=== PATIENT | male | born 1955 | race Caucasian/White ===

== ENCOUNTER 2017-09-04 23:06 | Inpatient (IN) | payer BC, OTHER ==
[~2017-09-04] VITALS: Ht 182.9 cm; Wt 104.3 kg
[2017-09-04 23:09] VITALS: Ht 182.9 cm; Wt 104.3 kg
[2017-09-04 23:45] LABS: BASOPHIL % 0.5 % (0-2); PLATELET COUNT 219 x10^3mcL (130-400); RED CELL DISTRIBUTION WIDTH 13.7 % (11.5-14.5)
[2017-09-05 00:03] LABS: CALCIUM 8.2 mg/dL (8.5-10.1); CARBON DIOXIDE 25.2 mmol/L (21-32); CHLORIDE SERUM 106 mmol/L (98-107); CREATININE SERUM 1.1 mg/dL (0.7-1.3); GFR1 > 60 mL/min; GLUCOSE SERUM 151 mg/dL (74-106); POTASSIUM SERUM 3.8 mmol/L (3.5-5.1); SODIUM SERUM 139 mmol/L (136-145)
[2017-09-05 00:11] LABS: ALKALINE PHOSPHATASE 83 U/L (46-116); ALT/SGPT 26 U/L (16-63); AMYLASE 76 U/L (25-115); AST/SGOT 16 U/L (15-37); BILIRUBIN TOTAL 0.2 mg/dL (0.20-1.00); CHOLESTEROL 135 mg/dL (<200); LIPASE 198 IU/L (73-393); T4(THYROXINE) 7.9 ug/dL (4.7-13.3); TOTAL PROTEIN, SERUM 6.7 g/dL (6.4-8.2)
[2017-09-05 00:13] LABS: ALBUMIN 3.3 g/dL (3.4-5.0)
[2017-09-05 00:14] LABS: HDL CHOLESTEROL 31 mg/dL (40-60)
[2017-09-05 02:05] LABS: MAGNESIUM 2.1 mg/dL (1.8-2.4); PHOSPHOROUS 3.3 mg/dL (2.5-4.9)
[2017-09-05 02:09] VITALS: BP 129/54
[2017-09-05 02:10] LABS: CHOLESTEROL/HDL RATIO 4.3
[2017-09-05 02:14] LABS: FREE T4 1.09 ng/dL (0.76-1.46); FREE THYROXINE INDEX 2.8 ug/dL (1.4-4.5); T4(THYROXINE) 8.1 ug/dL (4.7-13.3)
[2017-09-05 02:21] LABS: T3 TOTAL 1.17 ng/mL
[2017-09-05] MEDS ORDERED: LANTUS SOLOS100 U/M1 SQ (04:15)
[2017-09-05] MEDS ORDERED: METFORMIN HCL1000 MG PO (04:16)
[2017-09-05] MEDS ORDERED: LISINOPRIL10 MG PO (04:16)
[2017-09-05 06:09] VITALS: BP 116/60; BP 16/60
[2017-09-05 07:01] LABS: BASOPHIL % 0.2 % (0-2); PLATELET COUNT 182 x10^3mcL (130-400); RED CELL DISTRIBUTION WIDTH 13.7 % (11.5-14.5)
[2017-09-05 07:22] LABS: CALCIUM 8.3 mg/dL (8.5-10.1); CARBON DIOXIDE 25.7 mmol/L (21-32); CHLORIDE SERUM 105 mmol/L (98-107); CREATININE SERUM 1.1 mg/dL (0.7-1.3); GFR1 > 60 mL/min; GLUCOSE SERUM 110 mg/dL (74-106); MAGNESIUM 2.2 mg/dL (1.8-2.4); PHOSPHOROUS 3.8 mg/dL (2.5-4.9); POTASSIUM SERUM 4.6 mmol/L (3.5-5.1); SODIUM SERUM 138 mmol/L (136-145)
[2017-09-05 08:06] VITALS: BP 112/56
[2017-09-05 09:56] LABS: microscopic required? YES; urine erythrocyte NEGATIVE (NEGATIVE)
[2017-09-05 10:06] LABS: AMPHETAMINE QUAL UR NONE DETECTED (NEG <=1000)
[2017-09-05 12:38] VITALS: BP 119/59
[2017-09-05 17:36] VITALS: BP 145/53
[2017-09-05 20:31] VITALS: BP 145/65
[2017-09-06 06:37] VITALS: BP 146/52
[2017-09-06 07:19] LABS: BASOPHIL % 0.4 % (0-2); PLATELET COUNT 161 x10^3mcL (130-400); RED CELL DISTRIBUTION WIDTH 13.6 % (11.5-14.5)
[2017-09-06 07:58] LABS: CALCIUM 7.8 mg/dL (8.5-10.1); CARBON DIOXIDE 23.8 mmol/L (21-32); CHLORIDE SERUM 109 mmol/L (98-107); GFR1 > 60 mL/min; GLUCOSE SERUM 147 mg/dL (74-106); PHOSPHOROUS 2.5 mg/dL (2.5-4.9); POTASSIUM SERUM 4.6 mmol/L (3.5-5.1); SODIUM SERUM 142 mmol/L (136-145)
[2017-09-06 09:16] VITALS: BP 140/55
[2017-09-06 13:49] VITALS: BP 139/61
[2017-09-06 17:35] VITALS: BP 151/71
[2017-09-06 22:21] VITALS: BP 133/59
[2017-09-07 05:42] VITALS: BP 134/59
[2017-09-07] MEDS ORDERED: MOT800 PO (07:42)
[2017-09-07] MEDS ORDERED: COL100 PO (07:43)
[2017-09-07 08:18] LABS: BASOPHIL % 0.4 % (0-2); PLATELET COUNT 156 x10^3mcL (130-400); RED CELL DISTRIBUTION WIDTH 13.5 % (11.5-14.5)
[2017-09-07 08:22] LABS: CALCIUM 7.9 mg/dL (8.5-10.1); CARBON DIOXIDE 24.9 mmol/L (21-32); CHLORIDE SERUM 105 mmol/L (98-107); CREATININE SERUM 0.8 mg/dL (0.7-1.3); GFR1 > 60 mL/min; GLUCOSE SERUM 155 mg/dL (74-106); MAGNESIUM 2.1 mg/dL (1.8-2.4); PHOSPHOROUS 2.5 mg/dL (2.5-4.9); SODIUM SERUM 136 mmol/L (136-145)
[2017-09-07 08:57] VITALS: BP 143/66
[2017-09-07 11:59] VITALS: BP 143/66
[2017-09-07 13:34] VITALS: BP 120/59
== END 2017-09-07 14:15 | disposition home or self-care (01) | DRG 417 ==
LOC: ED 23:06 → DU 09-05 01:07 → MU 09-05 01:07 → DU 09-05 02:09 → MU 09-07 08:06
PROVIDERS: Emergency Medicine; Family Medicine; Surgery
PROC: 0FT44ZZ Resection of Gallbladder, Percutaneous Endoscopic Approach (ICD-10-PCS; principal; 2017-09-06 12:00)
DX: K80.62 Calculus of gallbladder and bile duct with acute cholecystitis without obstruction (principal); N17.0 Acute kidney failure with tubular necrosis; E44.1 Mild protein-calorie malnutrition; F17.210 Nicotine dependence, cigarettes, uncomplicated; K76.0 Fatty (change of) liver, not elsewhere classified; E11.65 Type 2 diabetes mellitus with hyperglycemia; E66.9 Obesity, unspecified; Z68.31 Body mass index [BMI] 31.0-31.9, adult; E87.8 Other disorders of electrolyte and fluid balance, not elsewhere classified; D64.9 Anemia, unspecified; R16.0 Hepatomegaly, not elsewhere classified
CPT/HCPCS: 82962; 83880; 84439; 94150; G0480; J0330; J0500; J0690; J1170; J1644; J1815; J1885; J2175; J2250; J2270; J3010; J3490; J7030; Q0092